=== PATIENT | female | born 1980 | race African-American/Black ===

== ENCOUNTER 2017-01-13 23:49 | Emergency (ER) | payer OTHER ==
[~2017-01-13] VITALS: Ht 152.4 cm; Wt 111.1 kg
[2017-01-14] MEDS ORDERED: DIFLUCAN100 MG PO (00:28)
[2017-01-14] MEDS ORDERED: PRILOSEC20 MG PO (00:28)
[2017-01-14] MEDS ORDERED: SE-NATAL 19 CH1 EACH PO (00:28)
[2017-01-14] MEDS ORDERED: TYLENOL EXTRA500 MG PO (00:29)
[2017-01-14] MEDS ORDERED: PREDNISONE20 MG PO (01:34)
[2017-01-14] MEDS ORDERED: EPIPEN ADU0.3 MG/0.3 IM (01:34)
[2017-01-14 01:41] VITALS: BP 121/71
== END 2017-01-14 01:46 | disposition home or self-care (01) ==
LOC: EME 23:49
DX: O99.89 Other specified diseases and conditions complicating pregnancy, childbirth and the puerperium (principal); T78.40XA Allergy, unspecified, initial encounter; Z3A.32 32 weeks gestation of pregnancy
CPT/HCPCS: 99281; 99284; J7512